=== PATIENT | female | born 1975 | race Caucasian/White ===

== ENCOUNTER 2019-03-20 17:04 | Emergency (ER) | payer MEDICAID ==
[~2019-03-20] VITALS: Ht 152.4 cm; Wt 66.2 kg
[2019-03-20 17:08] VITALS: BP 135/95
--- NOTE | 2019-03-20 17:13 | NUR ---
PT AMBULATED TO BED 7.
--- NOTE | 2019-03-20 17:15 | NUR ---
43 YEAR OLD FEMALE COMPLAINS OF DIARRHEA X 3 WEEKS. PATIENT DENIES N/V. ABDOMEN FLAT, FIRM, AND NONTENDER. BOWEL SOUNDS ACTIVE X4. PATIENT STATES SHE HAS STOMACH PAIN WHEN EATING. PATIENT ALERT AND ORIENTED, LUNG SOUNDS CTABL, SKIN WARM AND DRY, BED IN LOWEST POSITION, LOCKED, BED RAIL UPX1.
[2019-03-20 18:16] VITALS: BP 135/95
--- NOTE | 2019-03-20 18:17 | NUR ---
Patient discharged with v/s stable. Written and verbal after care instructions ABOUT DIARRHEA given and explained. Patient alert, oriented and verbalized understanding of instructions. Ambulatory with steady gait. All questions addressed prior to discharge. ID band removed. Patient advised to follow up with PMD. Rx of CIPRO AND LOPERAMIDE given. Patient educated on indication of medication including possible reaction and side effects. Opportunity to ask questions provided and answered.
== END 2019-03-20 18:17 | disposition home or self-care (01) ==
LOC: MED 17:04
DX: R19.7 Diarrhea, unspecified (principal); R10.9 Unspecified abdominal pain; Z87.19 Personal history of other diseases of the digestive system
CPT/HCPCS: 99283

== ENCOUNTER 2020-12-15 17:50 | Emergency (ER) | payer MEDICAID ==
[~2020-12-15] VITALS: Ht 157.5 cm; Wt 68.0 kg
[2020-12-15 17:59] VITALS: BP 149/82
--- NOTE | 2020-12-15 18:03 | NUR ---
PT AMB TO ER BED 7 W/O ASST
--- NOTE | 2020-12-15 18:16 | NUR ---
44 Y/O FEMALE C/O VAGINAL PAIN 02/02 DESCRIBES ACHING RADIATES TO LEFT SIDE X 3 DAYS. LMP 12/13/20. PT STATES SHE SAW A MD X1YEAR AGO AND PRESCRIBED TOPICAL CREAM BUT NOW NO RELIEF OF SYMPTOMS. DENIES DYSURIA, DENIES DISCHARGE, DENIES N/V, DENIES FEVER/CHILLS. DENIES PMH NKA
--- NOTE | 2020-12-15 18:54 | NUR ---
DR. LANDRY WITH PT AT BEDSIDE FOR FURTHER EVALUATION.
[2020-12-15] MEDS ORDERED: KETOROLAC 30 MG/ML VIAL IM ONE (19:00)
--- NOTE | 2020-12-15 19:15 | NUR ---
PT AMBULATED TO RESTROOM WITH A STEADY GAIT.
--- NOTE | 2020-12-15 19:16 | NUR ---
GAVE REPORT TO CHARGE KALEY GALINDO. TRANSFER OF CARE AT THIS TIME.
[2020-12-15 20:11] LABS: BILIRUBIN,URINE NEGATIVE (NEGATIVE); BLOOD, URINE 3+ (NEGATIVE); LEUKOCYTE ESTERASE ,URINE TRACE (NEGATIVE); NITRITE, URINE NEGATIVE (NEGATIVE); PH,URINE 5.5 (5.0-9.0); UGLUCOSE NEGATIVE (NEGATIVE)
[2020-12-15 20:12] LABS: APPEARANCE,URINE HAZY (CLEAR); COLOR,URINE RED (YELLOW)
[2020-12-15 20:21] LABS: RBC,URINE TOO NUMEROUS TO COUN /HPF (0-5); WBC,URINE 0-5 /HPF (0-5)
[2020-12-15 20:25] VITALS: BP 137/88
[2020-12-15] MEDS ORDERED: IBUP-1801 PO (21:39)
[2020-12-15] MEDS ORDERED: CEPH-588 PO (21:39)
--- NOTE | 2020-12-15 22:08 | NUR ---
Patient discharged with v/s stable. Written and verbal after care instructions given and explained. Patient alert, oriented and verbalized understanding of instructions. Ambulatory with steady gait. All questions addressed prior to discharge. ID band removed. Patient advised to follow up with PMD. Rx of IBUPROFEN AND KEFLEX given. Patient educated on indication of medication including possible reaction and side effects. Opportunity to ask questions provided and answered.
== END 2020-12-15 22:08 | disposition home or self-care (01) ==
LOC: MED 17:50
DX: D25.9 Leiomyoma of uterus, unspecified (principal); N39.0 Urinary tract infection, site not specified; Z90.49 Acquired absence of other specified parts of digestive tract; Z79.899 Other long term (current) drug therapy
CPT/HCPCS: 76856; 81001; 81025; 96372; 99284; J1885